=== PATIENT | female | born 1935 | race Caucasian/White ===

== ENCOUNTER 2016-08-02 10:17 | Observation (INO) | payer OTHER ==
--- NOTE | 2016-08-02 10:49 | EDPHY ---
HPI/HX/ROS/PE/MDM Narrative: Chief complaint: Difficulty speaking, left-sided numbness HPI: Patient had an episode of difficulty finding words and some subjective numbness in her left arm today. She 1st noticed these at 9 o'clock in the morning. She woke up at 8 this morning and thought she felt well. She went to take a shower at 9 and when she was speaking with her son she could not get the word shower out. She also felt she felt some numbness in her left side at that time. The symptoms have since resolved. She does have a history of CVA with a mild left-sided deficit in the past. No headache. No vision changes. No falls or other weakness. She does have a mild residual left facial asymmetry. Son is at the bedside and states that she appears absolutely normal at this time. Son does state that they have been battling a stomach virus the last few days. ROS: 10 point Review of Systems is negative except as noted in the HPI. Physical exam: Gen: Awake, Alert, No Distress HEENT: Nose: no rhinorrhea Eyes: PERRLA, EOMI Mouth: Moist mucosa Neck: Supple, no JVD Chest: nontender, lungs clear to auscultation Heart: S1, S2 normal, no murmur Abd: Soft, non-tender, no guarding Back: no CVA tenderness, no midline tenderness Ext: no edema, non-tender Skin: no rash Neuro: See the NIH stroke a section, she currently has an NIH stroke scale of 0 ED Course: Patient presenting with complaints of left-sided weakness and an episode of word -finding. Symptoms were noticed at 9 o'clock it this morning. On examination she has an NIH Stroke of 0. Son states that she appears normal and is at her baseline. Given resolution of her symptoms she is not a stroke alert at this time. It is concerning that she did have an episode of word finding difficulty this morning. Will obtain a CT scan, normal blood work. Likely will be admission for TIA workup and further evaluation. CT brain: No acute bleed. Possible old lacune and atrophy in the right. Interpreted Dr. Hi. Patient remains symptom-free. CT scan is unremarkable for bleed at this time. She is has no neurologic findings at this time. As discussed with Raiza Sosa, hospitalist. Plan will be to admit to the hospitalist service for further evaluation. - Data Points Laboratory Results: Laboratory Results 08/02/16 10:48 08/02/16 10:48 08/02/16 08/02/16 10:48 10:43 WBC 6.26 10^3/uL (3.80-9.50) RBC 5.61 H 10^6/uL (4.18-5.33) Hgb 16.0 g/dL (12.6-16.3) POC Hgb 16.0 H gm/dL (12.3-15.9) Hct 49.3 H % (38.0-47.0) POC Hct 47 % (35.5-47.5) MCV 87.9 fL (81.5-99.8) MCH 28.5 pg (27.9-34.1) MCHC 32.5 g/dL (32.4-36.7) RDW 14.1 % (11.5-15.2) Plt Count 206 10^3/uL (150-400) MPV 10.6 fL (8.7-11.7) Neut % (Auto) 67.6 % (39.3-74.2) Lymph % (Auto) 21.4 % (15.0-45.0) [place] % (Auto) 7.0 % (4.5-13.0) Eos % (Auto) 2.9 % (0.6-7.6) Baso % (Auto) 0.6 % (0.3-1.7) Nucleat RBC Rel Count 0.0 % (0.0-0.2) Absolute Neuts (auto) 4.23 10^3/uL (1.70-6.50) Absolute Lymphs (auto) 1.34 10^3/uL (1.00-3.00) Absolute Monos (auto) 0.44 10^3/uL (0.30-0.80) Absolute Eos (auto) 0.18 10^3/uL (0.03-0.40) Absolute Basos (auto) 0.04 10^3/uL (0.02-0.10) Absolute Nucleated RBC 0.00 10^3/uL (0-0.01) Immature Gran % 0.5 % (0.0-1.1) Immature Gran # 0.03 10^3/uL (0.00-0.10) POC Sodium 142 mEq/L (134-144) Sodium 144 mEq/L (134-144) POC Potassium 4.1 mEq/L (3.3-5.0) Potassium 4.5 mEq/L (3.5-5.2) POC Chloride 104 mEq/L (96-108) Chloride 106 mEq/L (97-110) Carbon Dioxide 25 mEq/l (22-31) Anion Gap 13 mEq/L (8-16) POC BUN 15 mg/dL (7-23) BUN 16 mg/dL (7-23) Creatinine 0.8 mg/dL (0.6-1.0) POC Creatinine 0.8 mg/dL (0.6-1.2) Estimated GFR > 60 Glucose 94 mg/dL (70-100) POC Glucose 99 mg/dL (70-100) Calcium 9.2 mg/dL (8.5-10.4) Troponin I < 0.012 ng/mL (0-0.034) Point of Care Test Results: 08/02/16 10:43 POC Sodium 142 POC Potassium 4.1 POC Chloride 104 POC BUN 15 POC Creatinine 0.8 POC Glucose 99 General Time Seen by Provider: 08/02/16 10:32 Initial Vital Signs: Initial Vital Signs Temperature (C) 37 C 08/02/16 10:19 Heart Rate 93 08/02/16 10:19 Respiratory Rate 16 08/02/16 10:19 Blood Pressure 163/108 H 08/02/16 10:19 O2 Sat (%) 95 08/02/16 10:19 O2 Delivery Mode Nasal Cannula O2 (L/minute) 2 Allergies/Adverse Reactions: etodolac [From Lodine] Allergy (Severe, Verified 08/02/16 10:23) HAND NUMB tetracycline [Tetracycline] Allergy (Mild, Verified 08/02/16 10:23) DIZZY oxycodone HCl [From OxyContin] Allergy (Verified 08/02/16 10:23) Home Medications: Medication Instructions Recorded Clopidogrel Bisulfate [Plavix (*)] 75 mg PO DAILY 02/25/14 Diltiazem Cd [Cardizem ER 120 MG 120 mg PO DAILY 02/25/14 (*)] Fluticasone/Salmeter 250/50Mcg 1 puffs IH BID 02/25/14 [Advair 250/50 (*)] Gabapentin [Neurontin 300 MG (*)] 300 mg PO HS 02/25/14 Gabapentin [Neurontin 300 MG (*)] 600 mg PO DAILY 02/25/14 Herbals/Supplements -Info Only 1 tab PO DAILY 02/25/14 Multivitamins [Multivitamin (*)] 1 tab PO DAILY 02/25/14 Simvastatin [Zocor 10 mg] 10 mg PO HS 02/25/14 Albuterol [Proventil Inhaler HFA 2 puffs IH PRN PRN 08/02/16 (*)] Departure - Departure Disposition: [facility] Inpatient Acute Clinical Impression: Transient ischemic attack Condition: Fair NIH Stroke Scale Date of Exam: 08/02/16 Time of Exam: 10:40 Level of Consciousness: Alert LOC Questions: Answers Both LOC Commands: Performs Both Correctly Best Gaze: Normal Visual: No Visual Loss Facial Palsy: Normal Motor Arm-Left: No Drift Motor Arm-Right: No Drift Motor Leg-Left: No Drift Motor Leg-Right: No Drift Limb Ataxis: Absent Sensory: Normal Best Language: No Aphasia Dysarthria: Normal Extinction and Inattention (Neglect): No Abnormality NIH Scale Score: 0
[2016-08-02 11:02] LABS: % IMMATURE GRANULYOCYTES 0.5 % (0.0-1.1); ABSOLUTE IMMATURE GRANULOCYTES 0.03 10^3/uL (0.00-0.10); ADD DIFF? NO; ADD MORPH? NO; ADD SCAN? NO; ATYPICAL LYMPHOCYTE FLAG 20 (0-99); FRAGMENT RBC FLAG 0 (0-99); HEMATOCRIT 49.3 % (38.0-47.0); LEFT SHIFT FLG 0 (0-99); LIPEMIA HEMOLYSIS FLAG 80 (0-99); MEAN CELL HEMOGLOBIN 28.5 pg (27.9-34.1); MEAN CELL HEMOGLOBIN CONCENTR. 32.5 g/dL (32.4-36.7); MEAN CELL VOLUME 87.9 fL (81.5-99.8); MEAN PLATELET VOLUME 10.6 fL (8.7-11.7); PLATELET CLUMPS FLAG 10 (0-99); PLATELET COUNT 206 10^3/uL (150-400); RED BLOOD CELL COUNT 5.61 10^6/uL (4.18-5.33); RED CELL DISTRIBUTION WIDTH 14.1 % (11.5-15.2)
--- NOTE | 2016-08-02 11:03 | CPEKG ---
Heart Rate: 79 RR Interval: 759 P-R Interval: 168 QRSD Interval: 114 QT Interval: 404 QTC Interval: 464 P Raymond: 47 QRS Raymond: -16 T Wave Raymond: -5 EKG Severity - ABNORMAL ECG - EKG Impression: SINUS RHYTHM EKG Impression: INCOMPLETE RIGHT BUNDLE BRANCH BLOCK Electronically Signed By: Veronika Prado 02-Aug-2016 14:59:13
[2016-08-02 11:20] LABS: ANION GAP 13 mEq/L (8-16); CALCIUM 9.2 mg/dL (8.5-10.4); CARBON DIOXIDE 25 mEq/l (22-31); CHLORIDE 106 mEq/L (97-110); CREATININE 0.8 mg/dL (0.6-1.0); GLOMERULAR FILTRATION RATE > 60; GLUCOSE 94 mg/dL (70-100); POTASSIUM 4.5 mEq/L (3.5-5.2); SODIUM 144 mEq/L (134-144)
[2016-08-02 11:32] LABS: TROPONIN I < 0.012 ng/mL (0-0.034)
--- NOTE | 2016-08-02 11:55 | CT ---
CT Brain (Without Contrast) at 1112 hours History: episode of expressive aphasia, resolved. Left-sided numbness. Previous strokes.. Comparison: February 2014. Technique: Axial computed tomographic images of the brain without contrast. Dose reduction techniques were utilized. Findings: Ventricles, cisterns, and sulci are widened consistent with atrophy. Tiny old lacunar infa rcts bilateral basal ganglia. 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 No hydrocephalus, midline shift/herniation, or epidural/subdural hematomas. No acute intraparenchymal h emorrhage or mass effect. Cerebrovascular atherosclerosis. Hypodensities in the white matter of bilat eral cerebral hemispheres. Bone windows demonstrate no displaced fractures. Paranasal sinuses and ma stoid air cells are clear. Impression: 1. Mild atrophy. 2. No acute hemorrhage, hydrocephalus, or mass effect. 3. Cerebrovascular atherosclerosis. 4. No definite acute infarct. 5. Moderate microvascular ischemic gliosis. 6. Old bilateral basal ganglia lacunar infarcts. 7.Consider MRI of the brain without and with contrast enhancement, if there is continued clinical con cern. Findings and recommendations discussed with Emergency Department physician, Damien Escobar MD at 1145 hour, 08/02/2016. Final report concurs with initial preliminary interpretation.
[2016-08-02] MEDS ORDERED: ONDANSETRON 4 MG/2 ML VIAL IVP PRN (14:12)
[2016-08-02] MEDS ORDERED: ACETAMINOPHEN 325 MG TAB PO PRN (14:12)
--- NOTE | 2016-08-02 14:54 | PDGENHP ---
History and Physical History and Physical: HISTORY AND PHYSICAL ADMISSION NOTE CC: Trouble speaking HISTORY: The patient felt well when she woke up this morning but when she was going to take a shower she went to tell her son about and could not come up with words shower. As best the patient can recall she did not have any other word-finding abnormality, any other trouble with her speech or language issues either expressive or receptive. She also around the same time developed a hollow empty feeling in her left hand in full wrist and her left ankle. These may have been numbness but she does not use that word. A complete neurologic review of systems is attempted and no other specific neurologic symptoms were present today. She denies any recent angina, palpitations, syncopal type symptoms, fever symptoms, nausea vomiting or other fluid losses, or any changes in vision. She does take Plavix daily and says she has been taking that really quite regularly without missed doses It should be noted that the patient does have some significant chronic memory issues that interfere with history taking and the above story comes from the patient and may have some accuracy whether maybe something missing due to her memory. The patient has 2 prior episodes in 2013 in 2014 of stroke and TIA seen at this hospital. ROS:10 system review reveals no other abnormalities at this time though her memory may interfere with accuracy of this PAST MEDICAL HISTORY: Basal ganglia stroke TIA Spinal stenosis with decompression of surgery Reactive airway disease Hypertension Total hip replacement bilaterally FAMILY MEDICAL HISTORY: Hypertension Stroke SOCIAL HISTORY: , lives with her son No smoking tobacco or alcohol or street drugs MEDICATIONS: Her list is reconciled by the pharmacist our electronic record and I have reviewed the list and ordered appropriate medicines PHYSICAL EXAMINATION: Vital Signs: Mild systolic hypertension otherwise normal without fever Senior Project Accountant: Sinus rhythm on my review Examination: General: alert, oriented, relaxed, some obvious memory deficit that appears to be at her baseline, otherwise not disoriented or confused, normal speech/ language, 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 There are 2 small basal ganglia lacune is right and left 12 lead EKG, my personal review of the tracing: Sinus rhythm with bundle branch block nothing ischemic ASSESSMENT: # likely TIA as the cause of her acute transient symptoms this morning; today's event occurred in the setting of Plavix therapy # history of prior basal ganglia strokes and prior TIA # unremarkable head CT scan today for any acute abnormalities, old lacune is are seen PLANS: Observation on rn cardiac rehab to look for telemetry and monitor neuro symptoms Doppler ultrasound of the carotid arteries Therapy evaluations Neurology consultation Will need to decide if she should have any preventive medications so will watch cardiac monitoring closely. I have reviewed the patient's case in detail with Dr. Damien Agudelo I have reviewed the patient's past medical records as part of this assessment, including prior hospitalizations with physicians notes, laboratory data, imaging studies
--- NOTE | 2016-08-02 15:57 | PDCONSULT ---
Slitting Machine Operator Helper Note: HOSPITAL NEUROLOGY CONSULT REQUESTING: Cory Carson MD REASON: TIA HPI: This is an 81-year-old right-handed woman with a history of cognitive impairment , hypertension, TIA and stroke who presented to our Emergency Department today due to language disturbance and left hand and foot sensory phenomenon. Patient has a prior history of basal ganglia strokes as well as TIAs that tend to manifest as language disturbance. She is currently maintained on clopidogrel 75 mg daily for anti thrombotic measures. This morning, around 9:00 a.m. the patient was going to take a shower. She apparently was unable to get the word shower out when and notifying her son, with whom she lives. Patient also happen to endorse a strange feeling in her left hand and foot. She denies any perioral abnormal sensation. There is no weakness, vision disturbance, slurred speech, gait disturbance, headache, fever , chills, meningismus, chest pain, palpitations or shortness of breath. The sensation is lasted about an hour or so per her report. She has since been back to her baseline. ROS: As per the HPI, otherwise a complete 12 point ROS was performed and is negative ALLERGIES AND MEDS: As recorded in the EMR - reviewed and reconciled PFSH: As per the intake H&P by Dr. Carson from today EXAM: VS reviewed in EMR GEN: WDWN laying in NAD HEENT: NCAT, sclera anicteric, conjunctiva not injected, MMM, oropharynx clear, no scalp tenderness NECK: supple, nontender, no meningismus CV: RRR s1 s2 wo m/r/c/g. Carotid pulses 2+ wo bruit NEURO: NIHSS 0 MS: awake, alert, oriented to all spheres. Speech nondysarthric. No language disturbance. Follows commands. Attends to both sides. Recent/remote memory grossly intact. Mood euthymic. Good fund of knowledge. CN: pupils 3mm round and reactive. Fundi with sharp discs. VFF. Primary gaze centered. Full ocular motility. Facial sensation preserved. Face symmetric. Hearing grossly intact. Palatoglossal movements intact. Shoulder shrug and head turn strong. MOTOR: normal bulk/tone. No adventitial movements. Some trace weakness in the deltoids and hip flexors, but otherwise full power throughout and no drift. SENSORY: intact LT/PP throughout and symmetric. No extinction. COORD: no ataxia FN/HS. Abhishek slightly labored. REFLEX: plantars down. No clonus. Absent DTRs. GAIT: deferred to PT safety evaluation DATA REVIEW: Labs reviewed in EMR LDL pending PERSONALLY INTERPRETED RESULTS AND DATA: CT head wo - mild global volume loss, chronic basal ganglia infarcts, nothing acute IMPRESSION AND RECOMMENDATIONS: // TRANSIENT LANGUAGE DISTURBANCE // TRANSIENT ABNORMAL SENSATION LEFT HAND AND FOOT // HX STROKE // HX TIA // HTN Patient presents with an episode of self-limiting word-finding as well as transient abnormal sensation in the left hand and foot. Given her prior history of stroke/TIA and conventional vascular risk factors of hypertension ( number one risk factor for stroke), This could represent a transient ischemic attack or stroke with rapidly resolving neurologic deficits. This could localize to the right thalamus manifesting as a cheiro-pedal syndrome with language disturbance. The language disturbance may also be a manifestation of her known cognitive impairment. She is not terribly specific regarding the abnormal sensation in her left hand and foot and denies it was true numbness or weakness, so this may be something non-neurologic in origin as well regarding the extremities. Regardless, I think we should investigate for stroke/TIA given her risk and symptoms semiology. - MRI brain wo - CTA head neck with attention to posterior circulation/face man (major thalamic blood supply) - TTE - cont clopidogrel - adjust statin for LDL goal < 70 - normoglycemia with A1c goal < 6.5 (can be checked as outpatient) - goal normotension - PT/OT/SERVER SYSTEMS ADMINISTRATOR consults - stroke education - delirium precautions - avoid sedating/disinhibiting medications
[2016-08-02] MEDS ORDERED: IOPAMIDOL (ISOVUE 370) 100 ML BTL IV ONE (16:57)
--- NOTE | 2016-08-02 17:32 | MR ---
MRI of the Brain (Without Contrast) at 1639 hours Clinical Indication: expressive language difficulty, left hand and foot numbness. Comparison: CT brain today Technique: T1-weighted images were acquired axially and sagittally from the foramen magnum to the ve rtex. Axial fast inversion recovery, fast T2-weighted, and diffusion-weighted axial images were obta ined without contrast. Findings: Several 2 to 3 mm old lacunar infarcts bilateral lentiform nuclei. Encephalomalacia right parietal cortex measuring 3 x 2 mm consistent with old infarct in the posterior division of the right middle cerebral artery territory. The ventricles, cisterns, and sulci are widened consistent with at rophy. No hydrocephalus, midline shift, herniation, or epidural/subdural hematomas. No intracranial h emorrhage or masses. Diffusion weighted sequence demonstrates no acute infarct. Cerebellar tonsils ar e in normal position. Pituitary gland is normal in size. Normal signal flow-void in the superior sagi ttal sinus, basilar artery, and bilateral internal carotid arteries indicating patency. Paranasal sin uses and mastoid air cells are clear. Scattered hyperintense T2/FLAIR signal foci throughout bilatera l cerebral white matter. Impression: 1. Moderate diffuse cerebellar and cerebral atrophy. 2. Old lacunar infarcts bilateral basal ganglia. 3. Old right parietal cortical infarct 4. No acute infarct, acute hemorrhage, hydrocephalus, mass effect, or herniation. 5. Moderate diffuse cerebral atrophy. 6. Several nonspecific hyperintense T2/FLAIR signal abnormalities in the white matter of bilateral ce rebral hemispheres. Differential diagnosis includes moderate microvascular ischemic gliosis, post-in fectious/post-inflammatory sequela, versus less likely atypical demyelinating disease, or migraine-re lated sequela.
[2016-08-02] MEDS ORDERED: ALBUTEROL 60 PUFFS/8 GM MDI IH PRN (17:36)
--- NOTE | 2016-08-02 18:11 | CT ---
CT Angiography of the Head Clinical Indications: Difficulty speaking today. Left arm numbness. History of CVA. No prior angiograms for comparison. CT brain December 2012. MRI brain January 13, 2013.. Technique: During automated power injection of 85 mL of Isovue-370, thinly collimated spiral (volume tric) multidetector helical imaging was performed through the head. Independent three-dimensional [employer] Data workstation was used for additional manipulations of images by the radiologist for a more thor ough evaluation of the vascular system. Appropriate images were stored on PACS. Dose reduction techn iques were utilized. Findings: The [place] of [place] and its branches are normal. No evidence of aneurysm or vascular mal formation. No occlusions are found. Impression: Normal. No occlusion or aneurysm.
--- NOTE | 2016-08-02 18:41 | CT ---
CT Angiography of the Neck (With Contrast) Clinical Indications: History of stroke. Acute onset of difficulty speaking and left arm numbness. Technique: During IV administration of 85 mL of Isovue-370 intravenously, helical multidetector data acquisition was obtained from the upper thorax cephalad through the skull base. The thinly collimat ed data were manipulated in multiple projections on the 3D computer workstation by the radiologist fo r a more thorough evaluation. Appropriate images were stored on PACS. Dose reduction techniques we re utilized. Comparison: CT chest October 09, 2008. Ultrasound of the carotid vessels and of the thyroid gland [facility]2013. Findings: Carotid bifurcations are widely patent. Both vertebral arteries are open. No evidence of occlusion, hemodynamically significant stenosis, or ulceration. There is a short focal area of mild luminal narrowing at the upper cervical right carotid artery, abo ut 1.5 cm in length, at the level of C1-C2, that most likely is caused by soft plaque based on the sa gittal reformatted images. There is no focal calcification here, and the estimated degree of luminal stenosis is about 20-30%. It is most likely not hemodynamically significant. This area would have been too high for assessment on color Doppler performed February 26, 2014. Both external carotid art eries are widely patent. The patient has a left dominant vertebral artery in the cervical portion. The vertebrobasilar system is otherwise normal, without aneurysm or occlusion. Incidentally noted are bilateral thyroid nodules, mostly consisting of hypodense nodules, with septat ions. There is a single punctate focus of calcification at the superior aspect of the right thyroid gland. They are increased compared to the CT scan done in 2008, but not significantly changed in siz e compared to ultrasound done February 2014. The patient has extensive cervical degenerative disease. She is post fusion from C2 down to the thor acic spine, with wide laminectomy defects throughout the cervical spine. The surrounding soft tissues are symmetric. No dominant adenopathy or mass. The visualized paranasa l sinuses are clear. Impression: 1. A 1.5-cm segment, at C1-C2, on the right, of mild cervical carotid narrowing estimating at 20-30% , caused by soft plaque. This area would have been too high for assessment by ultrasound in 2008. 2. Multiple cystic thyroid nodules bilaterally, not significantly changed in size compared to 2013 CT scan. 3. Otherwise, negative CT angiogram of the neck. 4. Extensive degenerative disease of the cervical spine, post extensive fusion. Note: All stenoses are calculated using NASCET Criteria.
[2016-08-02] MEDS: FLUTICASONE/SALMETER 250/50MCG DISKUS IH SCH (20:24)
[2016-08-02] MEDS ORDERED: GABAPENTIN 300 MG CAP PO SCH (21:00)
[2016-08-02] MEDS ORDERED: PRAVASTATIN SODIUM 20 MG TAB PO SCH (21:00)
[2016-08-03 07:38] VITALS: BP 146/72; PULSE 70; RESP 20; TEMP 98.6
[2016-08-03 08:02] LABS: CHOLESTEROL 97 mg/dL (140-220); HIGH DENSITY LIPOPROTEIN 36 mg/dL (40-85); TRIGLYCERIDE 126 mg/dL (35-135); VERY LOW DENSITY LIPOPROTEINS 25 mg/dL (8-25)
[2016-08-03 08:03] LABS: CHOLESTEROL/HDL RATIO 2.69 RATIO (1.00-4.44); LOW DENSITY LIPOPROTEIN 36 mg/dL (80-100); NON-HIGH DENSITY LIPOPROTEIN 61 mg/dL (90-129)
[2016-08-03] MEDS: FLUTICASONE/SALMETER 250/50MCG DISKUS IH SCH (08:31)
[2016-08-03] MEDS ORDERED: CLOPIDOGREL BISULFATE 75 MG TAB PO SCH (09:00)
[2016-08-03] MEDS ORDERED: GABAPENTIN 300 MG CAP PO SCH (09:00)
[2016-08-03] MEDS ORDERED: DILTIAZEM CD 120 MG CAP PO SCH (09:00)
[2016-08-03] MEDS ORDERED: ENOXAPARIN 40 MG/0.4 ML SYR SC SCH (09:00)
[2016-08-03] MEDS ORDERED: MULTIVITAMINS 1 EACH TAB PO SCH (09:00)
--- NOTE | 2016-08-03 10:05 | ECHO ---
[id number] + + [address] : : [place] [address] : : [phone] + + Adult Echocardiographic Report + ---+ :Name: RADHA YAN MStudy Date: 08/03/2016 07:32 AM BP: 146/72 mmHg : : Hospital Admission Number: [id number] Location: 350: :: 1935 Gender: Female Height: 65 in : :Age: 81 yrs Race: WH Weight: 175 lb : :Reason For Study: source of emboli : : BSA: 1.9 meters2 : :History: TIA : + ---+ MMode/2D Measurements \T\ Calculations IVSd: 0.89 cm RVDd: 2.8 cm FS: 40.3 % Ao root diam: LVPWd: 0.87 cm LVIDd: 4.0 cm EDV(Teich): 3.0 cm LVIDs: 2.4 cm 69.9 ml ESV(Teich): 19.9 ml EF(Teich): 71.6 % LVLd ap4: 7.6 cm SV(MOD-sp4): EDV(MOD-sp4): 63.0 ml 99.0 ml LVLs ap4: 6.4 cm ESV(MOD-sp4): 36.0 ml EF(MOD-sp4): 63.6 % Normal Measurement Values: + + :LVIDd (3.5-5.7cm) IVSd (0.6-1.1cm) LVPWd (0.6-1.1cm) Aortic Root (2.0-3.7cm)Left Atrium (1.5-4.0cm): :LV Vol(d) (76-115ml) LV Vol(s) (29-48ml) Ejec Fraction (50-65%)PV Walker (0.6- 1.2m/s) TV Walker (0.4-1.0m/s) : :MV E Walker (0.8-1.0m/s)MV A Walker (0.3-1.0m/s)LVOT Walker (0.7-1.2m/s) Asc Ao Walker ( 0.9-1.8m/s) : + + Doppler Measurements \T\ Calculations MV E max walker: Ao V2 max: LV V1 max: PA V2 max: 66.1 cm/sec 123.5 cm/sec 81.4 cm/sec 83.4 cm/sec MV A max walker: Ao max P.1 mmHg LV V1 max PG: PA max P.6 cm/sec 2.6 mmHg 2.8 mmHg MV E/A: 0.95 MV dec time: 0.27 sec Left Ventricle The left ventricle is normal in size and function. There is normal left ventricular wall thickness. Ejection Fraction = 70%. No regional wall motion abnormalities noted. Right Ventricle The right ventricle is normal in size and function. Atria The left atrial size is normal. Right atrial size is normal. Mitral Valve The mitral valve is normal in structure and function. There is no mitral valve stenosis. There is trace mitral regurgitation. Tricuspid Valve The tricuspid valve is normal in structure and function. There is no tricuspid stenosis. There is trace tricuspid regurgitation. Aortic Valve The aortic valve is normal in structure and function. There is no aortic stenosis. There is no aortic insufficiency. Pulmonic Valve The pulmonic valve is not well visualized. Great Vessels The aortic root is normal size. Pericardium/Pleural There is no pericardial effusion. Conclusion A two-dimensional transthoracic echocardiogram with M-mode and Doppler was performed. There is no obvious source of embolus identified. If one is highly clinically suspected, then transesophageal echocardiography should be considered. The left ventricle is normal in size and function. Ejection Fraction = 70%. There is trace mitral regurgitation. There is trace tricuspid regurgitation. The aortic valve is normal in structure and function. Final Reading Physician: Ying Jack signed on 08/03/2016 10:04 AM Ordering Physician: Darian Contreras Performed By: Krystal Cardona
[2016-08-03 11:22] VITALS: O2SAT 90
--- NOTE | 2016-08-03 14:01 | PDDCSUM ---
Discharge Summary Discharge Summary: DISCHARGE SUMMARY NOTE DISCHARGE DIAGNOSES: # transient word-finding and other sensory symptoms, question possible TIA versus other cause # History of prior lacunar strokes CONSULTANTS: Dr. Contreras PROCEDURES: MRI of brain with no acute stroke CT scan of head with no acute stroke or bleeding CT angiogram of head and neck with no significant obstructive atherosclerosis HOSPITAL COURSE SUMMARY: This woman came to the hospital with an episode of a funny hollow sensation in her left hand and ankle, along with inability to come up with the words shower when she wanted to tell her son she was going to take a shower. There had been no other word finding or language or speech abnormalities, and the whole episode lasted perhaps 15-20 minutes. At the time of her arrival her examination showed no acute neurologic changes and all of her imaging studies have been normal. 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 She has had good cholesterol, no sign of atherosclerosis needing other attention, and no other issues requiring management for stroke prevention. At this time she is stable for discharge to home. MEDICATION CHANGES: None FOLLOW-UP PLAN: with primary care physician within 2 weeks Greater than 35 minutes bedside and care coordination time today
== END 2016-08-03 14:48 | disposition home or self-care (01) ==
LOC: INTOOBSV 12:29 → F3N 14:03
PROVIDERS: ADMIT Internal Medicine; ATTEND Internal Medicine
DX: G45.9 Transient cerebral ischemic attack, unspecified (principal); J45.909 Unspecified asthma, uncomplicated; I10 Essential (primary) hypertension; Z96.643 Presence of artificial hip joint, bilateral; Z86.73 Personal history of transient ischemic attack (TIA), and cerebral infarction without residual deficits; E04.1 Nontoxic single thyroid nodule; M50.30 Other cervical disc degeneration, unspecified cervical region; G31.9 Degenerative disease of nervous system, unspecified
CPT/HCPCS: 92523; 93306; 97116; 97161; 97165; 99285; G0378; 82947-QW; J1650; Q9967